=== PATIENT | male | born 1955 | race African-American/Black ===

== ENCOUNTER 2021-12-01 15:33 | Emergency (ER) | payer MEDICAID, MEDICARE ==
[~2021-12-01] VITALS: Ht 188 cm; Wt 90.5 kg
[~2021-12-01 15:33] MED LIST: LISI20TA31 PO; OMEP20CA14 PO
[2021-12-01 15:41] VITALS: BP 176/80
== END 2021-12-01 18:58 | disposition left against medical advice (07) ==
LOC: ER 15:33
DX: Z53.21 Procedure and treatment not carried out due to patient leaving prior to being seen by health care provider (principal); R07.2 Precordial pain
CPT/HCPCS: 93005